=== PATIENT | male | born 1955 | race Caucasian/White ===

== ENCOUNTER 2020-03-30 06:10 | Day surgery (SDC) | payer OTHER ==
[~2020-03-30] VITALS: Ht 193 cm; Wt 102.1 kg
[~2020-03-30 06:10] MED LIST: BENA20TA14 PO; CHOL500040 PO; HYDR25TA4 PO; SIMV-13 PO
[2020-03-30] MEDS ORDERED: CIPROFLOXACIN 400MG/200ML 200 ML IV ONE (07:01)
[2020-03-30] MEDS ORDERED: ePHEDrine SULFATE 50 MG/ML AMP IV ONE (07:12)
[2020-03-30] MEDS ORDERED: IOHEXOL 300 MG/ML 100ML BOTTLE IJ ONE (07:24)
[2020-03-30] MEDS ORDERED: LIDOCAINE 2% JELLY 11ml (GLYDO) ONE (07:25)
[2020-03-30] MEDS ORDERED: MIDAZOLAM HCL 1MG/1ML-2 ML VIAL ONE (07:26)
[2020-03-30] MEDS ORDERED: MEPERIDINE HCL (50 MG/ML) 1 ML VIAL ONE (07:26)
[2020-03-30] MEDS ORDERED: fentaNYL CITRATE 100 MCG/2 ML VL ONE (07:26)
[2020-03-30] MEDS ORDERED: LABETALOL HCL 5 MG/ML 4ML SYRINGE IV PRN (07:45)
[2020-03-30] MEDS ORDERED: MIDAZOLAM HCL 1MG/1ML-2 ML VIAL IV PRN (07:45)
[2020-03-30] MEDS ORDERED: ONDANSETRON HCL 4 MG/2 ML VIAL IV PRN (07:45)
[2020-03-30] MEDS ORDERED: HYDROmorphone HCL 2 MG/ML VL IV PRN (07:45)
[2020-03-30] MEDS ORDERED: ePHEDrine SULFATE 50 MG/ML AMP IV PRN (07:45)
[2020-03-30] MEDS ORDERED: MORPHINE SULFATE 4 MG/ML SYR/VIAL IV PRN (07:45)
[2020-03-30] MEDS ORDERED: DexAMETHasone SOD PHOS 10MG/1ML VIAL INJ ONE (07:46)
[2020-03-30] MEDS ORDERED: PROPOFOL 10 MG/ML 20 ML IV ONE (08:11)
[2020-03-30] MEDS ORDERED: ROCURONIUM 10MG/ML 10ML VIAL IV ONE (08:11)
[2020-03-30 10:28] VITALS: BP 115/65
== END 2020-03-30 10:35 | disposition home or self-care (01) ==
LOC: SUR 06:10
PROVIDERS: ATTEND Urology
DX: C80.1 Malignant (primary) neoplasm, unspecified (principal); I10 Essential (primary) hypertension; Z90.89 Acquired absence of other organs; Z79.899 Other long term (current) drug therapy; Z98.890 Other specified postprocedural states; Z11.59 Encounter for screening for other viral diseases; Z91.030 Bee allergy status
CPT/HCPCS: 55873; C1769; C2618; J0744; J1100; J2175; J2250; J2704; J3010; Q9967; U0003